=== PATIENT | female | born 1995 | race Caucasian/White ===

== ENCOUNTER 2022-04-21 05:40 | Inpatient (IN) ==
--- NOTE | 2022-04-18 12:08 | Anesthesiology Consultation ---
Date of Service April 18, 2022 Assessment & Plan (1) Encounter for pre-operative examination: - COVID screening: Per irrigation specialist on 04/18/2022: Travel screen negative, no known COVID-19 positive contacts or current COVID-19 related symptoms in past 2 weeks. Pt vaccinated. Surgeon arranging preop COVID testing, scheduled 04/19/2022. Awaiting results. Chart Review Chart Review: data entry representative initiated History Surgery Operation Date: 04/21/22 07:30 Proposed Procedures p Section in LD (Delivery of Baby Through Abdominal Incision) - Gena Brady DO Height/Weight Height: 4 ft 11 in Weight: 91.626 kg Allergies Allergy/AdvReac Type Severity Reaction Status Date / Time No Known Allergies Allergy Verified 04/14/22 09:55 Medications Home Medications Medication Instructions Recorded Confirmed Last Taken prenat.vits,jefe,fuc-wtqz-nhnpz 1 tab PO DAILY 11/23/21 04/18/22 Unknown aspirin 81 mg chewable tablet 81 mg PO DAILY 02/09/22 04/18/22 Unknown Past Medical History Medical History (Updated 04/18/22 @ 12:08 by Adelita Roche PA-C) History of blood transfusion 2014 No known health problems Past Family History Family History Father Hypertension Grandfather (Paternal) Hypertension Past Surgical History Surgical History S/P section x2 Social History Smoking Status: Never smoker Do You Dip or Chew Tobacco: No Hx Alcohol Use: Yes (prior to ) Alcohol type: wine alcohol intake frequency: a few times a month Hx Substance Use: No substance use type: does not use
[2022-04-21] MEDS ORDERED: SODIUM CHLORIDE 0.9% 250 ML IV PRN (05:53)
[2022-04-21] MEDS ORDERED: LACTATED RINGER'S 1,000 ML IV SCH (06:00)
[2022-04-21] MEDS ORDERED: ceFAZolin 2,000 MG in SYRINGE 0 ML IV SCH (06:00)
[2022-04-21] MEDS ORDERED: CITRIC ACID/SODIUM CITRATE 15 ML UDC PO SCH (06:00)
[2022-04-21 06:20] LABS: Basophils # (auto) 0.01 K/uL (0-0.2); Basophils % (auto) 0.1 %; Eosinophils # (auto) 0.14 K/uL (0-0.5); Hematocrit (blood only) 28.9 % (37-47); Hemoglobin 10.2 g/dL (12.0-16.0); Immature Granulocytes # (auto) 0.02 K/uL (0.00-0.02); Immature Granulocytes % (auto) 0.3 %; Lymphocytes % (auto) 25.9 %; Mean Corpuscular Hemoglobin 31.6 pg (25-34); Mean Corpuscular Hgb Conc 35.3 g/dL (32-36); Mean Corpuscular Volume 89.5 fL (80-100); Mean Platelet Volume 11.4 fL (7.4-10.4); Monocytes # (auto) 0.58 K/uL (0.11-0.59); Monocytes % (auto) 8.3 %; Neutrophils % (auto) 63.4 %; Platelet Count 159 K/uL (130-400); RDW Coefficient of Variation 14.5 % (11.5-14.5); RDW Standard Deviation 47.7 fL (36.4-46.3); Red Blood Count 3.23 M/uL (4.2-5.4); White Blood Count 6.95 K/uL (4.8-10.8)
[2022-04-21] MEDS ORDERED: fentaNYL citrate 100 MCG/2 ML VIAL ONE (08:00)
[2022-04-21] MEDS ORDERED: MoRPHine SULFATE PF 1 MG/ML 10 ML AMP/VIAL ONE (08:00)
--- NOTE | 2022-04-21 08:19 | History & Physical Bridge Note ---
Date of Service April 21, 2022 History & Physical Bridge Note I have examined the patient, reviewed the History & Physical and in the interval since the performance of the History & Physical I have noted the following changes of clinical significance: no changes noted
[2022-04-21] MEDS ORDERED: ONDANSETRON INJ 2 MG/ML 2 ML VIAL ONE (09:10)
[2022-04-21] MEDS ORDERED: PHENYLEPHRINE 100MCG/ML 5ML SYR ONE (09:10)
[2022-04-21] MEDS ORDERED: NALOXONE HCL 1 MG in SODIUM CHLORIDE 0.9% 1000ML 1,000 ML IV PRN (09:26)
[2022-04-21] MEDS ORDERED: OXYTOCIN 10 UNITS/ML 10ML VIAL ONE (09:26)
[2022-04-21] MEDS ORDERED: NALOXONE HCL 0.08 MG in SYRINGE 1.8 ML IV PRN (09:26)
[2022-04-21] MEDS ORDERED: diphenhydrAMINE 50 MG/ML VIAL IV PRN (09:26)
[2022-04-21] MEDS ORDERED: LACTATED RINGER'S 500 ML IV PRN (09:26)
[2022-04-21] MEDS ORDERED: MoRPHine SULFATE PF 1 MG/ML 10 ML AMP/VIAL INT SPINAL ONE (09:26)
[2022-04-21] MEDS ORDERED: ONDANSETRON INJ 2 MG/ML 2 ML VIAL IV PRN (09:26)
[2022-04-21] MEDS ORDERED: NALBUPHINE HCL INJ 10 MG/ML AMP IV PRN (09:26)
[2022-04-21] MEDS ORDERED: NALOXONE HCL 0.4 MG/1 ML VIAL/CARP IV PRN (09:26)
[2022-04-21] MEDS ORDERED: MoRPHine SULFATE 2 MG/ML CARP IV PRN (09:26)
[2022-04-21] MEDS ORDERED: ePHEDrine sulfate 50 MG/ML AMP IV PRN (09:26)
[2022-04-21] MEDS ORDERED: NO NARCOTICS OR SEDATIVES SCH (09:30)
[2022-04-21] MEDS ORDERED: SODIUM CHLORIDE 0.9% 1000ML 1,000 ML IV SCH (09:30)
[2022-04-21] MEDS ORDERED: MIDAZOLAM HCL 1 MG/ML 2ML VIAL ONE (10:00)
[2022-04-21] MEDS ORDERED: KETAMINE 50 MG/5 ML SYRINGE ONE (10:00)
--- NOTE | 2022-04-21 11:17 | Operative Report ---
PG Post Operative Report Pre & Post Diagnosis Operation Date: 04/21/22 07:30 Pre-Op Diagnosis: History of Section x 2 ; Desires Repeat Section Post-Op Diagnosis: History of Section x 2 ; Desires Repeat Section I identified the patient and participated in the time-out.: Yes Procedure Operation Date: 04/21/22 07:30 Actual Procedures Repeat low transverse Section in LD; Live Female at 1009(Bilateral) - Gena Brady DO Surgeon Gena Brady DO Tooling Mechanic Mala Rivas MD, DO Estimated Blood Loss 1,000 Findings Consistent with Post-Op Diagnosis Extensive adhesions throughout pelvis - anterior uterus to anterior abdominal wall, anterior uterus to omentum to abdominal wall. Viable female , Apgars 9/9. Weight pending, please see nursery records. Other than adhesions, normal appearing uterus/tubes/ovaries. Specimens placenta Drains morales clear yellow Anesthesia Type Spinal Complications none Disposition Accompanied Patient To Recovery: No Disposition: L&D Indications 26yo @ 39 12/26, h/o x 2, obesity. Description of Procedure The patient was seen in her labor and delivery room, risks benefits and alternatives to surgery were reviewed. Informed consent obtained. Questions were answered. She was taken to the operating room, spinal anesthesia was administered. She was then prepared and draped in the usual sterile fashion in the supine position with a leftward tilt. Timeout was confirmed. A Pfannenstiel skin incision was made with a scalpel, and carried through to the underlying layer of fascia. Fascia was nicked at midline, and this incision was extended bilaterally. The superior aspect of the fascial incision was grasped with Luis clamps x2, elevated off the underlying rectus abdominis muscles, and dissected sharply and bluntly. Significant scarring. In similar fashion, the inferior aspect of the fascial incision was dissected. The rectus abdominis muscles were [id number], and the peritoneum was entered using hemostats. The peritoneum was extended bilaterally. There was significant adhesive disease between uterus, lower uterine segment, omentum, and anterior abdominal wall. This was carefully taken down in an attempt to restore normal anatomy. Unable to dissect bladder from anterior wall without large risk of injury, therefore decision was made to proceed with incision above the scarring. Using a new scalpel, a low transverse uterine incision was created. Clear amniotic fluid noted. The was delivered from a cephalic presentation. The head delivered, followed by shoulders and body. Spontaneous cry on the field. The cord was doubly clamped and cut, and the infant was handed off to the waiting government relations director. A segment was retained for cord gases. The placenta was delivered spontaneously intact. The uterus was exteriorized, and cleared of all clots and debris. The hysterotomy incision was reapproximated using 0 Vicryl in a running locked stitch. A second layer of the same suture was used to imbricate the incision. Posterior uterus was evaluated and normal. The hysterotomy was made hemostatic with figure of eight stitches. The uterus was returned to the abdomen, and gutters were cleared of clots and debris. Bovie cautery, shon powder, and surgifoam were used to obtain hemostasis. Excellent hemostasis was observed. The fascial incision was reapproximated using 0 Vicryl in a running stitch. The subcutaneous tissue was irrigated, and reapproximated using 2-0 plain gut in a running stitch. The skin was reapproximated using 4-0 Vicryl in a running subcuticular stitch. Steri-Strips and a bandage were applied. The patient tolerated the procedure well, and will be taken to the recovery area in stable and good condition. Sponge, needle, instrument counts correct x 2. I attest to the content of the Intraoperative Record and any orders documented therein. Any exceptions are noted below. OB Procedure Charges 77548
[2022-04-21] MEDS ORDERED: HYDROCORTISONE ACETATE 25 MG SUPP PR PRN (12:24)
[2022-04-21] MEDS ORDERED: bisacodyL 10 MG SUPP PR PRN (12:24)
[2022-04-21] MEDS ORDERED: OXYTOCIN 30 UNITS/500 ML BAG IV PRN (12:24)
[2022-04-21] MEDS ORDERED: DIPHTHERIA/TETANUS/PERTUSSIS 0.5 ML SYR/VIAL IM ONE (12:24)
[2022-04-21] MEDS ORDERED: BENZOCAINE 20% AER SPR 82.5 GM CAN EXT PRN (12:24)
--- NOTE | 2022-04-21 12:39 | Anesthesiology Progress Note ---
Date of Service April 21, 2022 Anesthesia Post Procedure Vital Signs Vital Signs: Temp Pulse Resp BP Pulse Ox 04/21/22 12:38 103 H 116/79 04/21/22 12:33 98 H 96 04/21/22 12:28 91 H 112/77 95 04/21/22 12:23 93 H 93 04/21/22 12:18 101 H 114/75 95 04/21/22 12:13 102 H 95 04/21/22 12:10 20 04/21/22 12:08 102 H 114/74 99 04/21/22 12:03 100 H 93 04/21/22 12:02 20 04/21/22 12:00 20 04/21/22 11:58 93 H 115/75 99 04/21/22 11:53 96 H 96 04/21/22 11:50 20 04/21/22 11:48 96 H 112/73 97 04/21/22 11:43 98 H 98 04/21/22 11:42 94 H 123/76 04/21/22 11:40 20 04/21/22 11:38 109 H 96 04/21/22 11:33 94 H 99 04/21/22 11:30 36.5 C 20 04/21/22 11:28 80 118/64 96 04/21/22 11:23 87 90 04/21/22 11:20 91 H 91 04/21/22 11:18 89 126/69 100 04/21/22 06:51 36.9 C 94 H 18 137/92 04/21/22 06:01 36.9 C 94 H 18 137/92 04/21/22 06:00 94 H 137/92 Notes Mental Status: alert / awake / arousable and participated in evaluation Patient Amnestic to Procedure: No Nausea / Vomiting: adequately controlled Pain: adequately controlled Airway Patency, RR, SpO2: stable & adequate BP & HR: stable & adequate Hydration State: stable & adequate Neuraxial Anesthesia: was administered and sensory block is resolving Anesthetic Complications: no major complications apparent and Pt Satisfied with anesthetic care
[2022-04-21] MEDS ORDERED: HYDROmorphone INJ 0.5 MG/0.5 ML SYR ONE (13:10)
[2022-04-21] MEDS: OXYTOCIN 30 UNITS in LACTATED RINGER'S 1,000 ML IV SCH ×2 (14:25→22:47)
[2022-04-21] MEDS: KETOROLAC 30 MG/ML VIAL IV PRN ×2 (15:41→21:04)
[2022-04-21] MEDS: ACETAMINOPHEN 325 MG TAB PO PRN (19:49)
[2022-04-21] MEDS: DOCUSATE SODIUM 100 MG CAP PO SCH (21:05)
[2022-04-22] MEDS: ACETAMINOPHEN 325 MG TAB PO PRN (01:29)
[2022-04-22] MEDS: KETOROLAC 30 MG/ML VIAL IV PRN (02:59)
[2022-04-22] MEDS ORDERED: DC INTRASPINAL MORPHINE ONE (03:26)
[2022-04-22] MEDS ORDERED: HYDROmorphone INJ 0.5 MG/0.5 ML SYR IV PRN (03:27)
[2022-04-22] MEDS: IBUPROFEN 600 MG TAB PO PRN ×4 (06:33→20:52)
[2022-04-22] MEDS: oxyCODONE/ACETAMINOPHEN 5mg/325mg TAB PO PRN ×4 (06:33→20:52)
[2022-04-22 07:33] LABS: Hematocrit (blood only) 22.7 % (37-47); Hemoglobin 7.8 g/dL (12.0-16.0); Mean Corpuscular Hemoglobin 30.6 pg (25-34); Mean Corpuscular Hgb Conc 34.4 g/dL (32-36); Mean Platelet Volume 11.9 fL (7.4-10.4); Platelet Count 178 K/uL (130-400); RDW Coefficient of Variation 14.7 % (11.5-14.5); RDW Standard Deviation 48.1 fL (36.4-46.3); Red Blood Count 2.55 M/uL (4.2-5.4); White Blood Count 9.89 K/uL (4.8-10.8)
--- NOTE | 2022-04-22 07:47 | Obstetrical Progress Note ---
Date of Service April 22, 2022 Assessment & Plan (1) Encounter for care and examination after delivery: Plan: Patient is a 26-year-old now female who delivered via at 39 and 3/7 weeks gestation, postoperative day 1. complicated by obesity. -Continue routine care, keep today -GBS negative, blood type B+, antibody negative, rubella immune -Hemoglobin 7.8, continue to monitor -Pain controlled today -Encouraged breast-feeding -Encouraged ambulation -Follow-up in [address] Brady Admission and Anticipated Discharge Date Admission Date: April 21, 2022 Supervising Physician Co-Signing Physician Notes Resident Physician Supervision Note: I was present with Dr. Cedeno during the history and exam. I discussed the case with the resident and agree with the findings and plan as documented in the note. Any exceptions or clarifications are listed here: POD#1 doing well. Routine recovery. Documented By: Gena Brady, DO Subjective Patient is a 26-year-old now female who delivered via at 39 and 3/7 weeks gestation, postoperative day 1. complicated by obesity. Patient walking around the room without difficulty. Huffman catheter pulled overnight. Patient reports pain controlled with Toradol as she got around 2:00 this morning. Of note patient did have one episode of vomiting at about 1300 hrs. yesterday but reports that shortly after that episode it had improved significantly and patient was able to eat dinner without any nausea or vomiting. Patient urinating without hematuria. Passing gas but no bowel movement as of yet. Lochia moderate and improving. Breast-feeding without difficulty. Otherwise denies fever, chills, chest pain, shortness of breath, UTI symptoms, or headache. Patient has no other complaints this time Review of Systems Review of Systems: All systems reviewed & are unremarkable except as noted in HPI & below Physical Exam Constitutional: WD/WN, vitals as above Eyes: + anicteric sclerae Neck: trachea midline, no thyromegaly Respiratory: normal respiratory effort, lungs clear to auscultation Cardiovascular: RRR, no murmur, no edema Gastrointestinal (Abdomen): normal bowel sounds, soft, nontender, no hepatosplenomegaly Musculoskeletal: Head/Neck/Chest: normocephalic and head atraumatic Skin: no rashes, warm and dry There is a lower abdominal surgical incision with mild bloody clear discharge without surrounding erythema or purulence. Neurologic: moves all extremities Psychiatric: A+Ox3, euthymic affect Genitourinary: Uterine fundus palpated at the level of the umbilicus, firm. Results & Data ([facility]) Vital Signs (Past 12 Hours) Vital Signs Temp Pulse Resp BP Pulse Ox 04/22/22 03:31 36.7 C 96 H 18 107/73 100 04/22/22 03:00 18 91 04/22/22 02:00 16 90 04/22/22 01:00 16 91 04/22/22 00:00 16 90 04/21/22 23:23 36.7 C 94 H 18 109/73 98 04/21/22 23:02 16 93 04/21/22 22:00 16 94 04/21/22 21:00 16 93 04/21/22 20:11 16 99 04/21/22 19:43 36.9 C 90 16 116/80 96 04/21/22 19:00 16 95 04/21/22 18:30 18 98 04/21/22 17:33 18 95
[2022-04-22] MEDS ORDERED: NON-FORMULARY MEDICATION (Prenat.Vits,Cal,Min-Iron-Folic tablet) PO SCH (09:00)
[2022-04-22] MEDS: PRENATAL VITAMIN 1 TAB PO SCH (09:00)
[2022-04-22] MEDS: DOCUSATE SODIUM 100 MG CAP PO SCH ×2 (09:00→20:52)
[2022-04-22] MEDS: SIMETHICONE 80 MG CHEW PO SCH ×4 (09:00→20:52)
[2022-04-22] MEDS ORDERED: Nursing to Pharmacy Communication SCH (18:00)
[2022-04-22] MEDS ORDERED: bisacodyL 5 MG TABEC PO SCH (20:00)
[2022-04-23] MEDS: IBUPROFEN 600 MG TAB PO PRN ×4 (01:06→15:55)
[2022-04-23] MEDS: oxyCODONE/ACETAMINOPHEN 5mg/325mg TAB PO PRN ×4 (01:06→15:56)
[2022-04-23 07:47] LABS: Hematocrit (blood only) 20.8 % (37-47); Hemoglobin 7.3 g/dL (12.0-16.0)
--- NOTE | 2022-04-23 08:27 | Obstetrical Progress Note ---
Date of Service April 23, 2022 Assessment & Plan (1) Encounter for care and examination after delivery: Postoperative from section patient meets discharge criteria as she is ambulating well tolerating an oral diet has minimal bleeding and no extremity pain. Discharge instructions were reviewed and prescriptions were sent to her pharmacy of choice patient advised to call with any concerns and follow-up in the office discussed Fe supp Subjective Ambulation: ambulating normally Voiding: no voiding problems Passing Gas:: Yes Diet Tolerance:: regular diet Lochia:: Small Feeding Type:: breast feeding Physical Exam Gastrointestinal (Abdomen) normal bowel sounds, soft, nontender, no hepatosplenomegaly Results & Data ([facility]) Vital Signs (Past 12 Hours) Vital Signs Temp Pulse Resp BP Pulse Ox 04/22/22 23:31 98.6 F 110 H 18 127/87 97
[2022-04-23] MEDS: DOCUSATE SODIUM 100 MG CAP PO SCH (08:55)
[2022-04-23] MEDS: PRENATAL VITAMIN 1 TAB PO SCH (08:55)
[2022-04-23] MEDS: SIMETHICONE 80 MG CHEW PO SCH ×2 (08:55→13:39)
--- NOTE | 2022-04-26 08:14 | Discharge Summary ---
Date of Service April 26, 2022 Discharge Data Consultations 04/21/22 05:52 Consult Anesthesiology Stat Procedures Performed Operation Date: 04/21/22 07:30 Actual Procedures p Section in LD; Live Female at 1009(Bilateral) - Gena Brady DO Hospital Course (1) Previous delivery affecting , antepartum: Admitted for , scheduled. Routine postop care. Dc home. Followup office 6w. Coding Level of Care Code None Diagnoses Previous delivery affecting , antepartum O34.219
== END 2022-04-23 18:15 | disposition home or self-care (01) | DRG 788 ==
LOC: 4S1 05:40 → EDSTATUS 07:30 → 4E2 12:44